=== PATIENT | male | born 1950 | race Caucasian/White ===

== ENCOUNTER 2020-07-04 16:43 | Emergency (ER) | payer OTHER ==
[~2020-07-04 16:43] MED LIST: ASPIRIN EC81 MG PO; CO Q10100 MG PO; COMBIVENT RESPIM4 GM INH; GAS-X125 MG PO; GORDO-VITE A2400 GM PO; LEUCINE PO; LUTEIN-ZEAXANT1 EACH PO; MAG-OXIDE 400M400 MG PO; OCUVITE ADULT1 EAC1 PO; OMEPRAZOLE40 MG PO; PEPCID AC20 MG PO; PROBIOTIC1 EAC1 PO; VITAMIN C500 M5 PO; VITAMIN D35000 UNI2 PO; ZINC CHELATED50 MG PO
[2020-07-04 18:17] LABS: BASOPHIL 0.1 % (0-2); EOSINOPHIL 0.7 % (0-7); HCT 47.7 % (42.0-52.0); HGB 16.6 g/dl (13.2-18.0); LYMPHOCYTE 10.8 % (15-48); MCH 33.3 pg (25.0-31.0); MCHC 34.8 g/dL (32.0-36.0); MCV 95.8 fL (78.0-100.0); MONOCYTE 8.2 % (0-12); MPV 10.6 fL (6.0-9.5); NEUTROPHIL 79.8 % (41-80); NRBC 0; PLT 156 K/uL (150-400); RBC 4.98 M/uL (4.70-6.00); RDW 11.9 % (11.5-14.0)
[2020-07-04 18:20] LABS: BILIRUBIN NEGATIVE (NEGATIVE); BLOOD 3+ Ery/uL (NEGATIVE); CLARITY HAZY (CLEAR); COLOR YELLOW (YELLOW); GLUCOSE (U) NORMAL (NORMAL); LEUKOCYTES TRACE Leu/uL (NEGATIVE); NITRITE NEGATIVE (NEGATIVE); PROTEIN TRACE (LOW) mg/dL (NEGATIVE); UROBILINOGEN 0.2 mg/dL (0.2-1.0)
[2020-07-04 18:27] LABS: ALBUMIN 4.3 g/dL (3.4-5.0); BILIRUBIN - TOTAL 0.7 mg/dL (0.2-1.0); BUN/CREAT RATIO (CALC) 16.8 RATIO; CREATININE 1.13 mg/dL (0.67-1.17); GLOBULIN (CALCULATION) 3.9 g/dL; POTASSIUM 4.6 mmol/L (3.5-5.1); TOTAL PROTEIN 8.2 g/dL (6.4-8.2)
[2020-07-04 18:39] LABS: URINARY RBC TNTC
[2020-07-04] MEDS ORDERED: NORCO 5-325 TA1 EACH PO (20:32)
[2020-07-04] MEDS ORDERED: ZOFRAN4 M1 PO (20:32)
[2020-07-04] MEDS ORDERED: FLOMAX0.4 MG PO (20:32)
== END 2020-07-04 20:50 | disposition home or self-care (01) ==
LOC: FER 16:43
PROVIDERS: Nurse Practitioner Family
DX: N13.2 Hydronephrosis with renal and ureteral calculous obstruction (principal); J44.9 Chronic obstructive pulmonary disease, unspecified
CPT/HCPCS: 36415; 80053; 81001; 85025; J1885; J2405; J7030

== ENCOUNTER → 2021-11-29 | Day surgery (SDC) | payer OTHER ==
[~2021-11-29] VITALS: Ht 185.4 cm; Wt 86.6 kg
[~2021-11-29] MED LIST changes: +DOXYCYCLINE MON50 MG PO; +FLOMAX0.4 MG PO; +NORCO 5-325 TA1 EACH PO; +ZOFRAN4 M1 PO
[2021-11-29 09:06] LABS: HCT 43.9 % (42.0-52.0); HGB 15.6 g/dl (13.2-18.0); MCH 33.8 pg (25.0-31.0); MCHC 35.5 g/dL (32.0-36.0); MCV 95.2 fL (78.0-100.0); MPV 10.6 fL (6.0-9.5); RBC 4.61 M/uL (4.70-6.00); RDW 12.4 % (11.5-14.0); WBC 4.5 K/uL (4.0-10.5)
[2021-11-29 09:20] LABS: ALBUMIN 3.9 g/dL (3.4-5.0); BILIRUBIN - TOTAL 0.5 mg/dL (0.2-1.0); BUN/CREAT RATIO (CALC) 19.1 RATIO; CREATININE 0.89 mg/dL (0.67-1.17); GLOBULIN (CALCULATION) 3.3 g/dL; POTASSIUM 4.2 mmol/L (3.5-5.1); TOTAL PROTEIN 7.2 g/dL (6.4-8.2)
== END | disposition home or self-care (01) ==
LOC: FAS 08:15
PROVIDERS: Surgery
DX: K20.80 Other esophagitis without bleeding (principal); K22.2 Esophageal obstruction; K29.70 Gastritis, unspecified, without bleeding; K31.9 Disease of stomach and duodenum, unspecified; J44.9 Chronic obstructive pulmonary disease, unspecified; Z88.2 Allergy status to sulfonamides; Z88.8 Allergy status to other drugs, medicaments and biological substances; Z91.013 Allergy to seafood
CPT/HCPCS: 36415; 80053; C1726; J2704; J7120